=== PATIENT | female | born 1995 | race African-American/Black ===

== ENCOUNTER 2020-03-16 23:20 | Emergency (ER) | payer SELFPAY ==
[2020-03-17 00:04] LABS: Absolute Lymphocytes (CBC) 2.3 K/uL (0.7-4.9); Basophils % 0.8 % (0-1.3); Hematocrit 31.3 % (36.0-45.0); Lymphocytes % 32.3 % (15.3-44.8); MPV 8.5 fL (7.6-11.3); RBC Red Blood Cell Count 3.63 M/uL (3.86-4.86)
[2020-03-17 00:14] LABS: Urine Blood NEGATIVE (NEG); Urine Glucose NEGATIVE (NEG); Urine Protein TRACE (NEG); Urine Specific Gravity >1.030 (1.005-1.030)
[2020-03-17 00:20] LABS: ALT/SGPT 15 U/L (12-78); AST/SGOT 13 U/L (15-37); Albumin 3.9 g/dL (3.4-5.0); Alkaline Phosphatase 44 U/L (45-117); BUN Blood Urea Nitrogen 14 mg/dL (7-18); Bicarbonate 25 mmol/L (21-32); Bilirubin Direct < 0.1 mg/dL (0-0.2); Bilirubin Total 0.2 mg/dL (0.2-1.0); Glucose Level 96 mg/dL (74-106); Lipase 153 U/L (73-393); Potassium 3.5 mmol/L (3.5-5.1); Protein, Total 7.4 g/dL (6.4-8.2); Sodium Level 142 mmol/L (136-145)
[2020-03-17 00:29] LABS: Urine Bacteria 20-50 /HPF (<20); Urine Mucus 3+ /HPF (NONE SEEN)
[2020-03-17 00:30] LABS: Urine Culture Reflex Order NOT NEEDED
[2020-03-17] MEDS ORDERED: NA CHLORIDE 0.9% 1,000 ML ONE (01:29)
[2020-03-17] MEDS ORDERED: MORPHINE 2 MG/ML SYR ONE (04:30)
--- NOTE | 2020-03-17 04:48 | EDPHYS ---
Physician Documentation [facility] Name: Maryan Fraga Age: 25 yrs Sex: Female : 1995 Arrival Date: 03/16/2020 Time: 23:23 Bed 5 Private MD: ED Physician Francisco Melo HPI: 03/16 23:43 This 25 yrs old Black Female presents to ER via Ambulatory with complaints of Abdominal mh7 Pain. 23:43 The patient presents with abdominal pain in the left lower quadrant. Onset: The mh7 symptoms/episode began/occurred 2 day(s) ago. The symptoms do not radiate. Associated signs and symptoms: Pertinent negatives: nausea, vomiting, and diarrhea, anorexia, blood in stools, chest pain, constipation, diarrhea, dysuria, fever, headache, hematuria, nausea, palpitations, shortness of breath, vaginal discharge, vomiting, vomiting blood. The symptoms are described as intermittent, sharp, waxing/waning. Modifying factors: The symptoms are alleviated by nothing, the symptoms are aggravated by nothing. Severity of pain: At its worst the pain was moderate 2 day(s) ago, in the emergency department the pain has improved moderately. Historical: - Allergies: 23:40 No Known Allergies; ll1 - PMHx: 23:40 Ovarian cyst; ll1 - PSHx: 23:40 nasal fracture repair; ll1 - Immunization history:: Adult Immunizations up to date. - Social history:: Smoking status: Patient denies any tobacco usage or history of. Patient/guardian denies using alcohol, street drugs, tobacco products. ROS: 23:43 Constitutional: Negative for fever, chills, and weight loss, Eyes: Negative for injury, mh7 pain, redness, and discharge, ENT: Negative for injury, pain, and discharge, Neck: Negative for injury, pain, and swelling, Cardiovascular: Negative for chest pain, palpitations, and edema, Respiratory: Negative for shortness of breath, cough, wheezing, and pleuritic chest pain, Back: Negative for injury and pain, : Negative for injury, bleeding, discharge, and swelling, MS/Extremity: Negative for injury and deformity, Skin: Negative for injury, rash, and discoloration, Neuro: Negative for headache, weakness, numbness, tingling, and seizure, Psych: Negative for depression, anxiety, suicide ideation, homicidal ideation, and hallucinations, Allergy/Immunology: Negative for hives, rash, and allergies, Endocrine: Negative for neck swelling, polydipsia, polyuria, polyphagia, and marked weight changes, Hematologic/Lymphatic: Negative for swollen nodes, abnormal bleeding, and unusual bruising. Exam: 23:43 Constitutional: This is a well developed, well nourished patient who is awake, alert, mh7 and in no acute distress. Head/Face: Normocephalic, atraumatic. Eyes: Pupils equal round and reactive to light, extra-ocular motions intact. Lids and lashes normal. Conjunctiva and sclera are non-icteric and not injected. Cornea within normal limits. Periorbital areas with no swelling, redness, or edema. Neck: Trachea midline, no thyromegaly or masses palpated, and no cervical lymphadenopathy. Supple, full range of motion without nuchal rigidity, or vertebral point tenderness. No Meningismus. Chest/axilla: Normal chest wall appearance and motion. Nontender with no deformity. No lesions are appreciated. Cardiovascular: Regular rate and rhythm with a normal S1 and S2. No gallops, murmurs, or rubs. Normal PMI, no JVD. No pulse deficits. Respiratory: Lungs have equal breath sounds bilaterally, clear to auscultation and percussion. No rales, rhonchi or wheezes noted. No increased work of breathing, no retractions or nasal flaring. 23:43 Back: No spinal tenderness. No costovertebral tenderness. Full range of motion. Skin: Warm, dry with normal turgor. Normal color with no rashes, no lesions, and no evidence of cellulitis. MS/ Extremity: Pulses equal, no cyanosis. Neurovascular intact. Full, normal range of motion. Neuro: Awake and alert, GCS 15, oriented to person, place, time, and situation. Cranial nerves II-XII grossly intact. Motor strength 5/5 in all extremities. Sensory grossly intact. Cerebellar exam normal. Normal gait. Psych: Awake, alert, with orientation to person, place and time. Behavior, mood, and affect are within normal limits. 23:43 Abdomen/GI: Inspection: abdomen appears normal, Bowel sounds: normal, in all quadrants, Palpation: mild abdominal tenderness, in the left lower quadrant, Rectal exam: the exam is deferred, because of patient request, Indicators: McBurney's point is not tender, Quintero's sign is negative, Rovsing's sign is negative, Obturator sign is negative, Psoas sign is negative, Liver: no appreciated palpable abnormalities, Hernia: not appreciated. 03/17 05:06 : CVA tenderness, is absent, Pelvic Exam: External exam: is normal, Speculum exam: no mh7 bleeding is noted, no cervicitis, os that is closed, no tissue in cervix is seen, no tissue in vagina is seen, thick white discharge vagina and cervix, bimanual exam reveals no cervical motion tenderness, os that is closed, normal sized uterus, no uterine tenderness, no adnexa tenderness or masses bilaterally, discharge, white, the nurse was present for the exam, Bladder: is normal, Rectal exam: is refused by patient or guardian. Vital Signs: 03/16 23:37 BP 128 / 88; Pulse 80; Resp 16; Temp 98.0; Pulse Ox 100% ; Pain 9/10; ll1 03/17 00:49 BP 105 / 71; Pulse 102; Resp 17; Temp 98.4; Pulse Ox 99% on R/A; rv 01:39 BP 108 / 78; Pulse 78; Resp 16; Pulse Ox 100% ; rv 02:40 BP 100 / 75; Pulse 63; Resp 16; Pulse Ox 99% on R/A; rv 03:15 BP 96 / 56; Pulse 71; Resp 16; Pulse Ox 97% on R/A; rv 04:00 BP 98 / 68; Pulse 65; Resp 15; Pulse Ox 97% on R/A; rv MDM: 03/16 23:41 Patient medically screened. mh7 03/17 04:45 Differential diagnosis: bowel obstruction, Ectopic , Irritable bowel syndrome, mh7 non-specific abd pain, Ovarian Torsion, Pelvic Inflammatory Disease, Pyelonephritis, Tubal Ovarian Abcess, Ureterolithiasis, urinary tract infection. Data reviewed: vital signs, nurses notes, lab test result(s), CBC, electrolytes, urinalysis, radiologic studies, CT scan, ultrasound. Data interpreted: teletypesetter monitor: rate is 65 beats/min, rhythm is normal sinus rhythm, regular, Interpretation: normal rate, normal rhythm, Pulse oximetry: on room air is 97 %. Interpretation: normal. Counseling: I had a detailed discussion with the patient and/or guardian regarding: the historical points, exam findings, and any diagnostic results supporting the discharge/admit diagnosis, lab results, radiology results, the need for outpatient follow up, to return to the emergency department if symptoms worsen or persist or if there are any questions or concerns that arise at home. Response to treatment: the patient's symptoms have markedly improved after treatment. 03/16 23:42 Order name: Basic Metabolic Panel; Complete Time: 00:51 [facility] 03/16 23:42 Order name: CBC with Diff; Complete Time: 00:51 [facility] 03/16 23:42 Order name: Hepatic Function; Complete Time: 00:51 [facility] 03/16 23:42 Order name: Lipase; Complete Time: 00:51 [facility] 03/17 00:10 Order name: Urine Dipstick--Ancillary (enter results); Complete Time: 00:51 [facility] 03/17 00:10 Order name: Urine --Ancillary (enter results); Complete Time: 00:51 [facility] 03/17 00:13 Order name: Urine Culture [facility] 03/17 00:13 Order name: Urine Microscopic Only; Complete Time: 00:51 [facility] 03/17 00:52 Order name: CT Abd/Pelvis - IV Contrast Only [facility] 03/17 02:57 Order name: US Pelvis Complete [facility] 03/17 04:42 Order name: GC (GONORR/CHLAMYDIA) Probe [facility] 03/17 04:42 Order name: Wet Prep [facility] 03/16 23:42 Order name: IV Saline Lock; Complete Time: 00:01 [facility] 03/16 23:42 Order name: Labs collected and sent; Complete Time: 00:01 [facility] 03/16 23:42 Order name: Urine Dipstick-Ancillary (obtain specimen); Complete Time: 00:08 [facility] 03/16 23:42 Order name: Urine Test (obtain specimen); Complete Time: 00:08 [facility] Administered Medications: 01:22 Drug: NS 0.9% 1000 ml Route: IV; Rate: 1 bolus; Site: right antecubital; rv 04:24 Follow up: IV Status: Completed infusion; IV Intake: 1000ml rv 04:24 Drug: morphine 2 mg Route: IVP; Site: right antecubital; rv 05:05 Follow up: Response: No adverse reaction; Pain is decreased; RASS: Drowsy (-1) rv 04:55 Drug: Rocephin (cefTRIAXone) 250 mg Route: IM; Site: right deltoid; rv 05:06 Follow up: Response: Medication administered at discharge. rv 05:04 Drug: AZITHromycin 1 grams Route: PO; rv 05:06 Follow up: Response: Medication administered at discharge. rv 05:04 Drug: Flagyl 500 mg Route: PO; rv 05:06 Follow up: Response: Medication administered at discharge. rv Disposition: 03/17/20 04:47 Discharged to Home. Impression: Female pelvic inflammatory disease, unspecified. - Condition is Stable. - Discharge Instructions: Pelvic Inflammatory Disease, [id number]. - Prescriptions for Tylenol- Codeine #3 300-30 mg Oral Tablet - take 1 tablet by ORAL route every 6 hours As needed; 15 tablet. Doxycycline Hyclate 100 mg Oral Tablet - take 1 tablet by ORAL route every 12 hours; 28 tablet. Metronidazole 500 mg Oral Tablet - take 1 tablet by ORAL route every 12 hours; 28 tablet. - Medication Reconciliation Form, Thank You Letter, Antibiotic Education, Prescription Opioid Use form. - Follow up: Private Physician; When: 1 - 2 days; Reason: Worsening of condition, Recheck today's complaints, Re-evaluation by your physician. Follow up: Jeannie Denny MD; When: 1 - 2 days; Reason: Worsening of condition, Recheck today's complaints. - Problem is new. - Symptoms have improved. Signatures: Dispatcher [employer] Reza Chavez RN RN Remedios Hess RN RN 1 Francisco Melo MD MD 7 Corrections: (The following items were deleted from the chart) 05:06 04:47 03/17/2020 04:47 Discharged to Home. Impression: Female pelvic inflammatory rv disease, unspecified. Condition is Stable. Forms are Medication Reconciliation Form, Thank You Letter, Antibiotic Education, Prescription Opioid Use. Follow up: Private Physician; When: 1 - 2 days; Reason: Worsening of condition, Recheck today's complaints, Re-evaluation by your physician. Follow up: Jeannie Denny; When: 1 - 2 days; Reason: Worsening of condition, Recheck today's complaints. Problem is new. Symptoms have improved. 7
--- NOTE | 2020-03-17 04:48 | ER ---
Nurse's Notes [facility] Name: Maryan Fraga Age: 25 yrs Sex: Female : 1995 Arrival Date: 03/16/2020 Time: 23:23 Bed 5 Private MD: Diagnosis: Female pelvic inflammatory disease, unspecified Presentation: 03/16 23:37 Chief complaint: Patient states: LLQ/pelvic pain for 3 days intermittently. Denies N/V. ll1 Slight diarrhea yesterday. No vaginal bleeding or discharge. States her period last month was irregular, home test is negative. Coronavirus screen: Proceed with normal triage. Patient denies a cough. Patient denies shortness of breath or difficulty breathing. Patient denies measured and/or subjective temperature greater than 100.4F prior to today's visit. Patient denies travel on a cruise ship or to a country the [facility] currently lists as an affected area. Patient denies contact with known and/or suspected case of COVID-19. Ebola Screen: Patient denies travel to an Ebola-affected area in the 21 days before illness onset. Initial Sepsis Screen: Does the patient meet any 2 criteria? No. Patient's initial sepsis screen is negative. Risk Assessment: Do you want to hurt yourself or someone else? Patient reports no desire to harm self or others. Onset of symptoms was March 14, 2020. 23:37 Method Of Arrival: Ambulatory 1 23:37 Acuity: SANTIAGO 3 ll1 03/17 00:31 Initial Sepsis Screen: Does the patient have a suspected source of infection? No. rv Patient's initial sepsis screen is negative. Historical: - Allergies: 03/16 23:40 No Known Allergies; ll1 - PMHx: 23:40 Ovarian cyst; ll1 - PSHx: 23:40 nasal fracture repair; ll1 - Immunization history:: Adult Immunizations up to date. - Social history:: Smoking status: Patient denies any tobacco usage or history of. Patient/guardian denies using alcohol, street drugs, tobacco products. Screenin/07 00:29 Abuse screen: Denies threats or abuse. Denies injuries from another. Nutritional rv screening: No deficits noted. Tuberculosis screening: No symptoms or risk factors identified. Fall Risk None identified. Assessment: 00:29 General: Appears uncomfortable, Behavior is calm, cooperative. Pain: Complains of pain rv in left lower quadrant and left inguinal area. Neuro: Level of Consciousness is awake, alert, obeys commands, Oriented to person, place, time, situation. Cardiovascular: Patient's skin is warm and dry. Respiratory: Airway is patent Respiratory effort is even, unlabored. GI: Bowel sounds present X 4 quads. Abd is soft and non tender X 4 quads. : Denies burning with urination. Derm: Skin is intact. 00:50 Reassessment: Patient and/or family updated on plan of care and expected duration. Pain rv level reassessed. Patient is alert, oriented x 3, equal unlabored respirations, skin warm/dry/pink. 01:39 Reassessment: PATIENT IS BACK FROM CT SCAN. UPDATED ON WAITING TIME. rv 04:27 Reassessment: Patient and/or family updated on plan of care and expected duration. Pain rv level reassessed. Patient is alert, oriented x 3, equal unlabored respirations, skin warm/dry/pink. ULTRASOUND DONE AT BEDSIDE. Vital Signs: 03/16 23:37 BP 128 / 88; Pulse 80; Resp 16; Temp 98.0; Pulse Ox 100% ; Pain 9/10; ll1 03/17 00:49 BP 105 / 71; Pulse 102; Resp 17; Temp 98.4; Pulse Ox 99% on R/A; rv 01:39 BP 108 / 78; Pulse 78; Resp 16; Pulse Ox 100% ; rv 02:40 BP 100 / 75; Pulse 63; Resp 16; Pulse Ox 99% on R/A; rv 03:15 BP 96 / 56; Pulse 71; Resp 16; Pulse Ox 97% on R/A; rv 04:00 BP 98 / 68; Pulse 65; Resp 15; Pulse Ox 97% on R/A; rv ED Course: 03/16 23:23 Patient arrived in ED. es 23:32 Ajit Rubio, RN is Primary Nurse. jb4 23:34 Francisco Melo MD is Attending Physician. mh7 23:39 Triage completed. ll1 23:40 Arm band placed on Patient placed in an exam room, on a stretcher. ll1 03/17 00:10 Inserted saline lock: 18 gauge in right antecubital area, using aseptic technique. rv Blood collected. 00:10 Initial lab(s) drawn, by me, sent to lab. rv 00:29 Patient has correct armband on for positive identification. Placed in gown. Bed in low rv position. Call light in reach. Side rails up X 1. Pulse ox on. NIBP on. 00:50 No provider procedures requiring assistance completed. rv 01:42 CT Abd/Pelvis - IV Contrast Only In Process Unspecified. EDMS 04:27 Ultrasound completed. Patient tolerated well. Notified ED Physician emma. sg3 04:27 US Pelvis Complete In Process Unspecified. EDMS 04:43 Assist provider with pelvic exam: Set up pelvic tray. Performed by Francisco Melo MD lp1 Specimens sent to lab. Patient tolerated well. 04:47 Jeannie Denny MD is Referral Physician. [facility] 05:05 IV discontinued, intact, bleeding controlled, No redness/swelling at site. Pressure rv dressing applied. Administered Medications: 01:22 Drug: NS 0.9% 1000 ml Route: IV; Rate: 1 bolus; Site: right antecubital; rv 04:24 Follow up: IV Status: Completed infusion; IV Intake: 1000ml rv 04:24 Drug: morphine 2 mg Route: IVP; Site: right antecubital; rv 05:05 Follow up: Response: No adverse reaction; Pain is decreased; RASS: Drowsy (-1) rv 04:55 Drug: Rocephin (cefTRIAXone) 250 mg Route: IM; Site: right deltoid; rv 05:06 Follow up: Response: Medication administered at discharge. rv 05:04 Drug: AZITHromycin 1 grams Route: PO; rv 05:06 Follow up: Response: Medication administered at discharge. rv 05:04 Drug: Flagyl 500 mg Route: PO; rv 05:06 Follow up: Response: Medication administered at discharge. rv Intake: 04:24 IV: 1000ml; Total: 1000ml. rv Outcome: 04:47 Discharge ordered by . 7 05:05 Discharged to home ambulatory. rv 05:05 Condition: good 05:05 Discharge instructions given to patient, Instructed on discharge instructions, follow up and referral plans. medication usage, Demonstrated understanding of instructions, follow-up care, medications, Prescriptions given X 3. 05:06 Patient left the ED. rv Signatures: Dispatcher [employer] Valerie Burnett Laura, RN RN lp1 Ajit Rubio, SHAYNA RN jb4 Chirag, Carla 3 Reza Ojeda, RN RN Remedios Whitley RN RN ll1 Francisco Melo MD MD mh7 Corrections: (The following items were deleted from the chart) 03/16 23:41 23:37 Chief complaint: Patient states: LLQ/pelvic pain for 3 days intermittently. ll1 Denies N/V/D. No vaginal bleeding or discharge. States her period last month was irregular, home test is negative. ll1
[2020-03-17] MEDS ORDERED: WATER FOR INJ,STERILE 10 ML ONE (05:01)
[2020-03-17] MEDS ORDERED: CEFTRIAXONE 250 MG/VIAL ONE (05:01)
[2020-03-17] MEDS ORDERED: AZITHROMYCIN 250 MG TAB ONE (05:01)
[2020-03-17] MEDS ORDERED: metroNIDAZOLE 500 MG TABLET ONE (05:01)
[2020-03-17 05:15] VITALS: TEMP 98.4
[2020-03-17 05:20] VITALS: O2SAT 97
[2020-03-17 05:21] VITALS: BP 98/68
--- NOTE | 2020-03-17 11:32 | RAD REPORT ---
EXAM DESCRIPTION: US - Pelvis Complete - 03/17/2020 4:27 am CLINICAL HISTORY: possible torsion Pelvic pain. COMPARISON: No comparisons FINDINGS: The uterus is normal in size, shape and echotexture. The uterus measures 7.4 x 4.5 x 4.2 c m. The endometrial stripe measures 5 mm, normal. Mild bilateral hydrosalpinx seen. Hemorrhagic cyst in the left ovary is suspected. Right ovary measur es 3.8 x 2.0 cm. Left ovary measures 4.6 x 4.0 cm. Normal Doppler blood flow was demonstrated to both ovaries. No significant pelvic ascites. IMPRESSION: Negative for ovarian torsion.
--- NOTE | 2020-03-17 19:11 | RAD REPORT ---
EXAM DESCRIPTION: CT ABDOMEN PELVIS WITH IV CONTRAST CLINICAL HISTORY: Left lower quadrant pelvic pain x3 days TECHNIQUE: Contiguous axial images obtained through the abdomen and pelvis following the uneventful administration of IV contrast. Coronal and sagittal reformatted images were provided. This exam was performed according to our departmental dose-optimization program, which includes autom ated exposure control, adjustment of the mA and/or kV according to patient size and/or use of iterati ve reconstruction technique. COMPARISON: None available for comparison. FINDINGS: Lung bases: Clear Liver: Unremarkable Gallbladder and biliary system: Unremarkable Pancreas: Unremarkable Spleen: Unremarkable Adrenals: Unremarkable Kidneys: Normal renal cortical enhancement. No calculi. No hydronephrosis. Bowel: Moderate stool within the proximal to mid large bowel. The large bowel appears somewhat thicke breann from the splenic flexure to the rectosigmoid colon. No obstruction. Appendix: Normal caliber appendix. No findings to suggest acute appendicitis. Urinary bladder: Mild to moderate circumferential urinary bladder wall thickening. Reproductive: The uterus is retroverted. 3.9 cm left ovarian cyst. Bilateral adnexal tubular fluid-fi lled structures with peripheral enhancement. Lymph nodes: No pathologically enlarged lymph nodes. Peritoneum: Small amount of free fluid within the pelvis. No free air. Vessels: No abdominal aortic aneurysm. Abdominal wall: Tiny fat-containing umbilical hernia. Bones: Unremarkable IMPRESSION: 1. The large bowel appears somewhat thickened from the splenic flexure to the rectosigmoid colon. Th is may in part be related to underdistention. If clinical concern for this entity, mild nonspecific c olitis may be considered. 2. 3.9 cm left ovarian cyst. Bilateral adnexal tubular fluid-filled structures with peripheral enha ncement which may be related to hydrosalpinx/pyosalpinx. The possibility of tubo-ovarian abscess perri ot be entirely excluded. Please correlate clinically for signs and symptoms of pelvic inflammatory di sease. 3. Other findings as above. THIS REPORT CONTAINS FINDINGS THAT MAY BE CRITICAL TO PATIENT CARE: The findings were verbally discu ssed via telephone conference with Dr. Francisco Melo on 03/17/2020 2:55 AM CDT. The results were ackno wledged and understood. Electronically signed by: Brody Horton MD 03/17/2020 2:57 AM CDT Due to temporary technical issues with the PACS/Fluency reporting system, reports are being signed by the in house radiologist without review as a courtesy to ensure prompt reporting. The interpreting r adiologist is fully responsible for the content of the report.
[2020-03-19 21:42] LABS: C.trachomatis RNA,TMA Detected (Not Detected)
== END 2020-03-17 05:06 | disposition home or self-care (01) ==
LOC: ER 23:20
DX: N73.9 Female pelvic inflammatory disease, unspecified (principal)
CPT/HCPCS: 36415; 74177; 76856; 80048; 80076; 81003; 81015; 81025; 83690; 85025; 87086; 87088; 87210; 87490; 87590; 96361; 96372; 96374; 99284; J0696; J2270; J7030; Q9967